=== PATIENT | male | born 1965 | race Caucasian/White ===

== ENCOUNTER → 2017-09-11 | Outpatient (CLI) | payer OTHER ==
--- NOTE | 2017-09-12 10:37 | MR ---
EXAMINATION TYPE: MR shoulder RT wo con DATE OF EXAM: 09/11/2017 COMPARISON: Outside radiographs 08/15/2017 HISTORY: 52-year-old male Right shoulder pain TECHNIQUE: Multiplanar, multisequence imaging of the right shoulder is performed without contrast. FINDINGS: The long head biceps tendon remains appropriately situated within the bicipital groove. There is intr asubstance tear and tendinosis involving the intracapsular portion with small interstitial tear exten ding into the bicipital groove. Diffuse heterogeneous signal of the subscapularis tendon with small bursal sided tear of the inferior half fibers. The majority of the tendon remains intact. Moderate degenerative joint space narrowing with marginal spurring and capsular hypertrophy at the ac romial clavicular joint. No significant mass effect onto the underlying cuff. There is edematous thickening of the axillary recess for example, refer to T2 fat-sat coronal image 1 4 and additional thickening of the coracohumeral ligament, referred to the sagittal T1 image 13. Heterogeneity of the supraspinatus and infraspinatus tendons compatible with tendinosis. There is eit her bursal sided fraying or very shallow bursal sided tear of the mid to posterior supraspinatous ten don fibers measuring 1 cm long and 8 mm in AP dimension. Additionally, there is a small 5 mm focus of intrasubstance change at the footprint of the anterior i nfraspinous tendon. No high-grade partial or full-thickness rotator cuff tear and no atrophy of the rotator cuff musculat ure. No significant thickening or fluid distention of the subacromial/subdeltoid bursa. There is heterogeneous signal within the superior labrum suggesting underlying tear, for example, cor onal T2 FS image 14 and 16. Evaluation of the glenohumeral joint shows mild thinning of inferior humeral head articular cartilage with preserved glenoid articular cartilage. Physiologic joint fluid. No Hill-Sachs deformity or os acromiale. Mild patchy red marrow hyperplasia. No suspicious bone marro w replacement. IMPRESSION: 1. Moderate diffuse rotator cuff tendinosis with a very shallow bursal sided tear vs bursal sided fra jagjit of the supraspinatus tendon. Some focal intrasubstance change is present at the footprint of the infraspinatus tendon. 2. Additional partial bursal sided tear of the inferior subscapularis tendon fibers. The majority of the subscapularis tendon remains intact. No high-grade partial or full-thickness rotator cuff tear. 3. SLAP tear. Interstitial tear extends into the intracapsular portion of the long head biceps tendon . 4. Edematous thickening of the axillary recess and thickening of the coracohumeral ligament as well. Clinically correlate as these findings can be seen in the setting of adhesive capsulitis. 5. Moderate AC joint OA.
== END | disposition home or self-care (01) ==
LOC: RADMRIMAIN 13:13
PROVIDERS: ATTEND Orthopaedic Surgery
DX: M19.011 Primary osteoarthritis, right shoulder (principal); S46.111A Strain of muscle, fascia and tendon of long head of biceps, right arm, initial encounter; S43.491A Other sprain of right shoulder joint, initial encounter

== ENCOUNTER → 2017-10-25 | Outpatient (CLI) | payer OTHER ==
[2017-10-25 09:56] LABS: Basophils # (A) 0.1 k/uL (0-0.2); Basophils % (A) 1 %; Eosinophils # (A) 0.2 k/uL (0-0.7); Eosinophils % (A) 3 %; HCT 44.2 % (39.0-53.0); HGB 14.6 gm/dL (13.0-17.5); Lymphocytes # (A) 2.1 k/uL (1.0-4.8); Lymphocytes % (A) 44 %; MCH 31.6 pg (25.0-35.0); MCHC 33.1 g/dL (31.0-37.0); MCV 95.7 fL (80.0-100.0); Mean Platelet Volume 6.6; Monocytes # (A) 0.2 k/uL (0-1.0); Monocytes % (A) 5 %; Neutrophils % (A) 43 %; Platelet Count 193 k/uL (150-450); RBC 4.62 m/uL (4.30-5.90); WBC 4.7 k/uL (3.8-10.6)
[2017-10-25 10:14] LABS: Potassium 4.4 mmol/L (3.5-5.1)
== END | disposition home or self-care (01) ==
LOC: LABPAT 09:26
PROVIDERS: ATTEND Orthopaedic Surgery
DX: Z01.818 Encounter for other preprocedural examination (principal); Z01.812 Encounter for preprocedural laboratory examination; M75.41 Impingement syndrome of right shoulder
CPT/HCPCS: 36415; 80051; 85025; 93005

== ENCOUNTER 2017-11-11 05:42 | Day surgery (SDC) | payer OTHER ==
[2017-10-30 14:29] VITALS: BMI 29.2
--- NOTE | 2017-11-10 11:12 | HP ---
HISTORY AND PHYSICAL REASON FOR ADMISSION: 11/11/2017 Oneil Meyer is a 52-year-old patient seen with progressive right shoulder pain. Treatment options were discussed. She elected to proceed with right shoulder arthroscopy. Consent regarding the procedure was obtained. PAST MEDICAL HISTORY: Noncontributory. PAST SURGICAL HISTORY: Right elbow surgery, herniorrhaphy, mastoidectomy. MEDICATIONS: Naprosyn. ALLERGIES: None reported. SOCIAL HISTORY: Patient currently smokes cigarettes. PHYSICAL EXAMINATION: Evaluation of the right shoulder flexion 110 degrees, abduction 100 degrees, external rotation is 30 degrees with weakness. Tenderness along the anterior lateral acromion rotator cuff insertion site. Impingement sign positive 90 degrees. Drop-arm sign positive. Distal neurovascular exam intact. RADIOGRAPHS: Right shoulder revealed a type 2 anterior acromion, acromioclavicular joint osteoarthritis and cystic changes of the greater tuberosity. A right shoulder MRI revealed rotator cuff tear, partial biceps tendon tear, acromioclavicular joint osteoarthritis and labral tear. IMPRESSION: 1. Right shoulder impingement with rotator cuff tear, biceps tear and labral tear. 2. Right shoulder acromioclavicular joint osteoarthritis. 3. Tobacco use. PLAN: Right shoulder arthroscopy with subacromial decompression, possible arthroscopic rotator cuff repair, probable Brie procedure, probable biceps tenotomy and debridement. Surgery scheduled for 11/11/2017. MMODL / IJN: [id number] /
[~2017-11-11 05:42] MED LIST: ceFAZolin IN SWFI 2 GM/20 ML SYRINGE IVP ONE
[2017-11-11] MEDS ORDERED: ONDANSETRON 4 MG/2 ML VIAL IVP ONE (05:49)
[2017-11-11] MEDS ORDERED: DEXAMETHASONE SOD PHOSPHATE 10 MG/ML 1 ML VIAL IV ONE (05:49)
[2017-11-11] MEDS ORDERED: LACTATED RINGERS 1,000 ML IV SCH (05:49)
[2017-11-11] MEDS ORDERED: MIDAZOLAM 2 MG/2 ML VIAL IV PRN (05:49)
[2017-11-11] MEDS ORDERED: HYDROmorphone 0.5 MG/0.5 ML SYRINGE IVP PRN (05:49)
[2017-11-11] MEDS ORDERED: LIDOCAINE 1% 20 ML VIAL (10MG/ML) FOR IV START INTRADERMA ONE (06:25)
[2017-11-11 06:40] LABS: Glucose,Whole Blood 97 mg/dL (75-99)
[2017-11-11] MEDS ORDERED: LIDOCAINE 1% INJ 10MG/ML (20 ML MDV) ONE (07:26)
[2017-11-11] MEDS ORDERED: fentaNYL (PF) 50 MCG/ML 2 ML AMP ONE (07:26)
[2017-11-11] MEDS ORDERED: MIDAZOLAM 2 MG/2 ML VIAL ONE (07:26)
[2017-11-11] MEDS ORDERED: ROPIVACAINE 5 MG/ML 30 ML VIAL ONE (07:26)
[2017-11-11] MEDS ORDERED: PROPOFOL 10 MG/ML 20 ML VIAL IV ONE (07:26)
[2017-11-11] MEDS ORDERED: GLYCOPYRROLATE 0.2 MG/ML 2 ML VIAL ONE (07:26)
[2017-11-11] MEDS ORDERED: ePHEDrine SULFATE/0.9% NACL/PF 50 MG/5 ML SYRINGE IV ONE (07:26)
[2017-11-11 08:51] VITALS: TEMP 96.8
--- NOTE | 2017-11-11 09:02 | P.OP ---
Date of Procedure: 11/11/17 Preoperative Diagnosis: Right shoulder impingement Postoperative Diagnosis: 1. Right shoulder rotator cuff tear 2. Right shoulder impingement 3. Right shoulder acromioclavicular joint osteoarthritis 4. Right shoulder partial long head biceps tendon tear 5. Right shoulder superficial labral tear Procedure(s) Performed: 1. Right shoulder arthroscopic rotator cuff repair 2. Right shoulder arthroscopic subacromial decompression 3. Right shoulder arthroscopic Brie procedure 4. Right shoulder arthroscopic biceps tenotomy 5. Right shoulder arthroscopic debridement labral tear Implants: 14.75 Arthrex swivel lock anchor Anesthesia: GETA, regional (Interscalene block) Surgeon: Emery Frost Cardiac Technician #1: Alexander Louise Estimated Blood Loss (ml): 10 Pathology: none sent Condition: stable Disposition: PACU Indications for Procedure: 52-year-old patient seen with progressive right shoulder pain. After treatment options were discussed, he elected to proceed with arthroscopy. Operative Findings: see description of procedure Description of Procedure: Patient underwent an interscalene block by department of anesthesia. The patient was then taken to the operative suite. The patient underwent a general anesthetic by the department of anesthesia. The patient was placed into a lateral position and secured. There was appropriate padding of the bony prominence. Right shoulder was then prepped and draped in normal sterile orthopedic fashion. We placed the extremity in 10 pounds of longitudinal traction. A posterior incision was now made for a posterior working portal site. The trocar and cannula were inserted into the glenohumeral joint. Arthroscopy was initiated. Spinal needle was now inserted anteriorly, to ascertain the anterior working portal site. An incision was now made in that area, a trocar was inserted followed by a probe. There was superficial tearing of the superior and anterior labrum present. There was some grade 1 chondromalacia changes of the humeral head noted. There was partial tearing and hyperemia long head biceps tendon. I performed an arthroscopic biceps tenotomy. I debrided the superficial labral tears down to stable tissue. The residual labrum was stable. Instruments were now removed from the glenohumeral joint. Utilizing the posterior working portal site, the trocar and cannula were inserted into the subacromial space. Arthroscopy initiated. I made an incision 2 fingerbreadths lateral to the acromion. I introduced my trocar followed by my ArthroCare ablator. I now began ablating thick subacromial bursal tissue, which exposed the undersurface of the anterior acromion. There was diminished subacromial space. There was a very prominent anterior acromion. A motorized bur was introduced and a subacromial decompression was performed. I also excised some osteophytes off the inferior aspect of the distal clavicle. The AC joint was visualized and noted to be fairly arthritic. The motorized bur was introduced in the anterior portal site and a Brie procedure was performed without difficulty, decompressing the AC joint nicely. I turned my attention to the rotator cuff. There was partial tearing noted along the area of the distal distal supraspinatus. Upon probing there was an obvious full-thickness perforation present. I debrided that area getting down to stable tendon tissue. There was approximately 11 0.75 tear. I introduced my motorized bur and abraded the footprint area, getting some petechial bleeding. I now with the assistance of Jose F LINDSEY past 2 everted mattress sutures through good bites of rotator cuff tendon. I now prepunched hole for anchor. The sutures were passed through an anchor, the anchor was inserted into the hole. Jose F LINDSEY now tension the sutures while I held the anchor in appropriate position. Jose F LINDSEY now inserted the anchor as I held it into position. The anchor had good bite and purchase. All residual suture limbs were now clipped. We had good compression of the tendon along the entire footprint. I injected 1 mL Renue intra-articular. Instruments now removed from the portal sites. All portal sites were approximated with nylon suture. Sterile dressings were applied followed by a shoulder immobilizer. Alexander LINDSEY assisted in this complex case. The patient was awakened, transferred to a bed, and taken to recovery in stable condition.
--- NOTE | 2017-11-11 09:58 | P.ONQ ---
Anesthesiology Proc Note - PNB - Peripheral Nerve Block Performed Right Interscalene Single Time Out Performed: Yes Procedure Start Time: 06:53 Procedure Stop Time: :57 Indication: Acute Post-Operative Pain, Requested by physician Sedation Type: Sedate with meaningful contact maintained Preparation: Sterile Prep Needle Size: 50mm (2") Needle Gauge: 21 Technique: Ultrasound Injectate: 0.5% Ropivacaine (see comment for volume) (ropi .5% 30cc) Blood Aspirated: No Pain Paresthesia on Injection Noted: No Resistance on Injection: Normal Events: Uneventful and Well Tolerated
[2017-11-11 10:13] VITALS: BP 146/87; PULSE 78; RESP 18
== END 2017-11-11 10:44 | disposition home or self-care (01) ==
LOC: OR 05:42
PROVIDERS: ATTEND Orthopaedic Surgery
DX: M75.101 Unspecified rotator cuff tear or rupture of right shoulder, not specified as traumatic (principal); M75.41 Impingement syndrome of right shoulder; S46.111A Strain of muscle, fascia and tendon of long head of biceps, right arm, initial encounter; S43.431A Superior glenoid labrum lesion of right shoulder, initial encounter; X58.XXXA Exposure to other specified factors, initial encounter; K21.9 Gastro-esophageal reflux disease without esophagitis; Z79.1 Long term (current) use of non-steroidal anti-inflammatories (NSAID); F17.210 Nicotine dependence, cigarettes, uncomplicated
CPT/HCPCS: 64415; 29826; 29827; 29824; C1713; C1765; J2250; J1100; J2405; J2001; J3010; J2795; J2704; J0690